=== PATIENT | male | born 2000 | race Asian ===

== ENCOUNTER 2024-11-15 10:12 | Emergency (ER) | payer OTHER ==
[~2024-11-15] VITALS: Ht 177.8 cm; Wt 73.0 kg
[2024-11-15] MEDS: LIDOCAINE 5% PATCH TD ONE (15:09)
[2024-11-15] MEDS: METHOCARBAMOL 1,000 MG/10 ML VIAL IM ONE (15:10)
[2024-11-15] MEDS ORDERED: CYCL-707 PO (16:13)
[2024-11-15] MEDS ORDERED: LIDO1ADH93 TD (16:15)
[2024-11-15] MEDS ORDERED: MEDR4PAK PO (16:15)
[2024-11-15 16:25] VITALS: BP 126/74; TEMP 98.6; O2SAT 98
== END 2024-11-15 16:28 | disposition home or self-care (01) ==
LOC: M ED 10:12
DX: M51.26 Other intervertebral disc displacement, lumbar region (principal); M48.061 Spinal stenosis, lumbar region without neurogenic claudication; Z79.899 Other long term (current) drug therapy
CPT/HCPCS: 72131; 96372; 99283; J2800